=== PATIENT | male | born 1970 | race Caucasian/White ===

== ENCOUNTER 2019-01-01 01:01 | Observation (INO) ==
[2019-01-01] MEDS ORDERED: 0.9 % Sodium Chloride 1,000 ML IV ONE ×2 (01:34→04:04)
[2019-01-01] MEDS ORDERED: Ondansetron 4 MG/2 ML VIAL IVP STA (01:34)
--- NOTE | 2019-01-01 01:35 | Emergency Department Note ---
Disposition Clinical Impression: LOBO (acute kidney injury) Alcohol withdrawal Qualifiers: Complication of substance-induced condition: with unspecified complication Qualified Code(s): F10.239 - Alcohol dependence with withdrawal, unspecified Disposition: Admitted As Inpatient Condition: Fair Referrals: Brian Barber, HYDROTECHNICAL SPECIALIST [Primary Care Provider] - Forms: ED Satisfaction Letter Time of Disposition: 04:02 General Adult HPI - General Chief complaint: ED GI Bleed Stated complaint: vomiting blood, +ETOH Time Seen by Provider: 01/01/19 01:28 Nursing Notes Reviewed: Yes Vital Signs Reviewed: Yes - History of Present Illness HPI Narrative: Alert and oriented nontoxic appearing 48-year-old male presents with complaint of vomiting blood, abdominal pain and alcohol abuse. Patient reports that he has been vomiting blood for several days, although he is unsure exactly how many due to fact that he has been drinking very heavily for a long period of time. Patient reports that he drinks approximately 1 gallon of vodka Daily. Patient is accompanied by his ex- who states that she passed the patient on the roadway 2 days ago and found him next to his car vomiting blood on the side of the road. She states that she helped him in getting home he continued drinking from that point forward. She states that she has been with him throughout the day today as urged him to come to seek medical care. She states the patient has vomited approximately 7-8 times today, she describes it as dry heaving and then coughing up blood-tinged sputum. She reports that patient's abdomen seems more distended than normal. She states that patient has been a chronic alcoholic and that she helps care for him, seeing him a couple of days weekly. Patient reports that he has had abdominal pain to the upper abdomen and epigastric region for "quite some time" and reports that it worsens just before the vomiting, he states that the reason he drinks so much alcohol is to help in relieving the abdominal pain. He also states that he has had several bowel movements daily and states that his stools are black. He reports taking a Vivitrol dose today that he had had left over from a previous rehabilitation visit stating that he was trying to stop drinking today, although he had been drinking up to the point of taking the medication and then again after taking, he states that his nausea and vomiting became much worse after this. He denies fever, chills, diarrhea or shortness of breath. Onset (ago): day(s) Location: abdomen Pain Severity: moderate Quality: burning Consistency: intermittent, Worsening Improves with: nothing Worsens with: eating Associated symptoms: Reports: chest pain (Intermittent after vomiting), cough (Reports cough after vomiting.), nausea/vomiting. Denies: confusion, diaphoresis, fever/chills, headaches, loss of appetite, malaise, rash, seizure, shortness of breath, syncope, weakness Treatments Prior to Arrival: none - Related Data Allergies Allergy/AdvReac Type Severity Reaction Status Date / Time Penicillins Allergy Rash Verified 09/04/16 07:47 Review of Systems: As Per HPI Constitutional: Reports: as per HPI. Denies: fever, chills, weakness Cardiovascular: Reports: as per HPI, chest pain. Denies: palpitations, dyspnea on exertion Respiratory: Reports: as per HPI, cough, hemoptysis. Denies: dyspnea, wheezes, stridor Gastrointestinal: Reports: as per HPI, abdominal pain, nausea, vomiting, hemate mesis. Denies: diarrhea, hematochezia Genitourinary: Denies: dysuria Musculoskeletal: Denies: back pain, neck pain Integumentary: Denies: rash, abrasion, lesions, change in hair/nails Neurological: Denies: headache, weakness, numbness, paresthesias Past Medical History - Past Medical History Attestation: Yes The following information was validated with the patient. Source: patient, nursing notes reviewed Medical history: Reports: diabetes, GERD, hypertension, other Surgical history: Reports: other Psychiatric history: Reports: no psych history - Social History Smoking Status: Current every day smoker Alcohol use: Reports: heavy Drug use: Reports: none Physical Exam - General Limitations: no limitations General appearance: in no apparent distress, appears intoxicated - Head Head exam: atraumatic, normocephalic - Eye Eye exam: Present: normal appearance, EOMI. Absent: scleral icterus, conjunctival injection, periorbital swelling - ENT ENT exam: normal exam, mucous membranes dry - Neck Neck exam: Present: normal inspection, trachea midline. Absent: meningismus, lymphadenopathy - Chest Chest inspection: Present: normal inspection, symmetric chest wall rise - Respiratory Respiratory exam: Present: normal lung sounds bilaterally. Absent: respiratory distress, wheezes, stridor, accessory muscle use, prolonged expiratory phase - Cardiovascular Cardiovascular exam: Present: normal heart sounds - Abdominal Exam Abdominal exam: Present: tenderness, distention (Mild), diminished bowel sounds, hypoactive bowel sounds. Absent: guarding, rebound, rigidity, organomegaly, tenderness at McBurney's Point, ascites, mass Abdominal tenderness: Present: RUQ, LUQ, epigastrium - Extremities Exam Extremities exam: Present: normal inspection, full ROM. Absent: tenderness - Back Exam Back exam: Absent: tenderness - Neurological Exam Neurological exam: Present: alert, oriented X3 - Psychiatric Psychiatric exam: Present: normal affect, normal mood - Skin Skin exam: Present: warm, dry, intact, normal color Course Vital Signs Temperature 98.4 F 01/01/19 01:44 Pulse Rate 90 01/01/19 01:44 Respiratory Rate 18 01/01/19 01:44 Blood Pressure 125/73 01/01/19 01:44 O2 Sat by Pulse Oximetry 95 01/01/19 01:44 Temperature 98.4 F 01/01/19 01:44 Pulse Rate 53 01/01/19 02:38 Respiratory Rate 16 01/01/19 02:38 Blood Pressure 106/63 01/01/19 02:38 O2 Sat by Pulse Oximetry 92 01/01/19 02:38 Oxygen Delivery Oxygen Delivery Room Air Medical Decision Making - MDM Narrative Medical decision making narrative: I spoke to the hospitalist at this time and he does accept patient under hospitalist care for acute kidney injury as well as alcohol withdrawal. - Medical Records Medical records reviewed: Yes I reviewed the patient's medical records. - Lab Data Lab results reviewed: Yes I reviewed the patient's lab results. Result diagrams: 01/01/19 01:51 01/01/19 01:51 Lab Results 01/01/19 01/01/19 01/01/19 Range/Units 01:51 01:51 01:51 WBC 9.8 (4.3-11.1) K/mcL RBC 4.34 (4.19-5.50) M/mcL Hgb 13.1 (12.9-16.9) g/dL Hct 38.9 (37.5-50.1) % MCV 89.6 (83.0-100.0) fL MCH 30.2 (28.0-33.3) pg MCHC 33.7 (31.6-35.5) g/dL RDW 14.6 H (11.5-14.5) % Plt Count 240 (140-400) K/mcL MPV 9.3 L (9.4-12.4) fL Immature Gran % 0.5 (0-4) % Seg Neutrophils % 67.2 % Lymphocytes % 25.4 % Monocytes % 6.0 % Eosinophils % 0.5 % Basophils % 0.4 % Neutrophils # 6.6 (1.6-8.9) K/mcL Lymphocytes # 2.5 (0.6-4.6) K/mcL Monocytes # 0.6 (0.0-1.3) K/mcL Eosinophils # 0.1 (0.0-0.6) K/mcL Basophils # 0.0 (0.0-0.2) K/mcL PT 11.7 (9.4-12.1) Seconds INR 1.0 APTT 29.3 (26.0-36.0) Seconds Sodium 134 L (136-145) mEq/L Potassium 3.6 (3.5-5.1) mEq/L Chloride 99 (98-107) mEq/L Carbon Dioxide 18 L (23-29) mEq/L BUN 24 H (6-20) mg/dL Creatinine 2.12 H (0.70-1.30) mg/dL Est GFR ( Amer) 41 L (> 60) Est GFR (Non-Af Amer) 34 L (> 60) BUN/Creatinine Ratio 11 (6-26) Glucose 101 (70-105) mg/dL Calculated Osmolality 282 (280-300) Calcium 8.4 L (8.6-10.3) mg/dL Total Bilirubin 0.4 (0.3-1.0) mg/dL Direct Bilirubin 0.1 (0.0-0.2) mg/dL Indirect Bilirubin 0.3 (0.0-1.2) mg/dL AST 17 (13-39) Units/L ALT 15 (7-52) Units/L Alkaline Phosphatase 46 (34-104) Units/L Serum Total Protein 6.5 (6.4-8.9) g/dL Albumin 4.2 (3.5-5.7) g/dL Globulin 2.3 L (2.4-3.5) g/dL Albumin/Globulin Ratio 1.8 (1.1-2.2) Ethyl Alcohol 274 H (Less than 10) mg/dL - Radiology Data Radiology results reviewed: Yes I reviewed the patient's radiology results. - EKG Data EKG #1 EKG attestation: Yes I reviewed and interpreted this EKG. EKG results narrative: I reviewed the EKG which shows a sinus bradycardia with no sign of ST elevation or depression. Heart rate: 53, TX:184, QRSD: 96, QT/QTc: 421/461.
[2019-01-01 02:09] LABS: Basophils % 0.4 %; Eosinophils # 0.1 K/mcL (0.0-0.6); Eosinophils % 0.5 %; Hematocrit 38.9 % (37.5-50.1); Hemoglobin 13.1 g/dL (12.9-16.9); Immature Granulocytes % 0.5 % (0-4); Lymphocytes # 2.5 K/mcL (0.6-4.6); Lymphocytes % 25.4 %; Mean Corpuscular HGB Conc 33.7 g/dL (31.6-35.5); Mean Corpuscular Hemoglobin 30.2 pg (28.0-33.3); Mean Corpuscular Volume 89.6 fL (83.0-100.0); Mean Platelet Volume 9.3 fL (9.4-12.4); Monocytes # 0.6 K/mcL (0.0-1.3); Neutrophils # 6.6 K/mcL (1.6-8.9); Platelet Count 240 K/mcL (140-400); Red Blood Count 4.34 M/mcL (4.19-5.50); Red Cell Distribution Width 14.6 % (11.5-14.5); Segmented Neutrophils % 67.2 %; White Blood Count 9.8 K/mcL (4.3-11.1)
[2019-01-01 02:17] LABS: Prothrombin Time 11.7 Seconds (9.4-12.1)
[2019-01-01 02:19] LABS: Activated Partial Thrombo Time 29.3 Seconds (26.0-36.0)
[2019-01-01 02:31] LABS: Albumin 4.2 g/dL (3.5-5.7); Albumin/Globulin Ratio 1.8 (1.1-2.2); Bilirubin,Direct 0.1 mg/dL (0.0-0.2); Bilirubin,Indirect 0.3 mg/dL (0.0-1.2); Bilirubin,Total 0.4 mg/dL (0.3-1.0); Calcium 8.4 mg/dL (8.6-10.3); Globulin 2.3 g/dL (2.4-3.5); Potassium 3.6 mEq/L (3.5-5.1); Total Protein 6.5 g/dL (6.4-8.9)
[2019-01-01] MEDS ORDERED: *HR* LORazepam 2 MG/ML VIAL IVP STA (03:57)
[2019-01-01] MEDS ORDERED: Thiamine (B-1) 100 MG in 0.9 % Sodium Chloride 50 ML IVPB STA (04:03)
[2019-01-01] MEDS ORDERED: *HR* LORazepam 2 MG/ML VIAL IVP ONE (04:53)
[2019-01-01] MEDS ORDERED: Naloxone 0.4 MG/ML INJ IVP PRN (08:08)
[2019-01-01] MEDS ORDERED: Acetaminophen 325 MG TABLET PO PRN (08:08)
[2019-01-01] MEDS ORDERED: *HR* Dextrose 50 % in Water (Syg) 50 ML SYRINGE IVP PRN (08:13)
[2019-01-01] MEDS ORDERED: *HR* LORazepam 2 MG/ML VIAL IVP PRN (08:13)
[2019-01-01] MEDS ORDERED: Dextrose Gel 15 GM/37.5 ML TUBE PO PRN ×2 (08:13)
[2019-01-01] MEDS ORDERED: D5% in Water 1,000 ML IVC PRN (08:13)
[2019-01-01] MEDS ORDERED: Nicotine 21 MG PATCH.TD24 TD SCH (09:00)
[2019-01-01] MEDS: Folic Acid 1 MG TABLET PO SCH (09:01)
[2019-01-01] MEDS: *HR* LORazepam 2 MG/ML VIAL IVP PRN ×6 (09:01→22:07)
--- NOTE | 2019-01-01 09:22 | AcuteCare Surgery Consult Note ---
Date of Encounter: 01/01/19 Time of Encounter: 09:15 Assessment and Plan (1) Hematemesis Current Visit: Yes Status: Acute The patient reports several episodes of hematemesis associated with heavy alcohol use. We will plan upper endoscopy tomorrow morning Mac anesthesia Qualifiers: Nausea presence: with nausea Qualified Code(s): K92.0 - Hematemesis History of Present Illness Consult date: 01/01/19 Reason for consult: other (Hematemesis) History of present illness: The patient is a 48-year-old alcoholic. The patient has had hematemesis on at least 2 separate occasions. The most recent was 5 years ago. He had upper endoscopy that demonstrated gastritis at that time the patient states that he h as hematemesis when he drinks heavily. The patient states that he has been drinking a gallon and a half of liquor per day he had several episodes of hematemesis and now presents for further evaluation. The patient ate earlier today. He is currently stable. We will plan nothing by mouth after midnight and upper endoscopy tomorrow morning Past Med Surg Social Fam HX - Past Medical History Medical history: diabetes, GERD, hypertension, other Additional medical history: lumbar disc herniation Psychiatric history: no psych history - Past Surgical History Surgical History: other Additional surgical history: right hand, back - Social History Smoking Status: Current every day smoker Packs per day: 2 Smokeless Tobacco Status: Yes Alcohol use: heavy, recent Drug use: none - Family History Mother Living Status: Still Living Hx Family Cardiac Disorders: Yes Father Living Status: Still Living Hx Family Cardiac Disorders: Yes Medications and Allergies Aspirin [Lo-Dose Aspirin EC] 81 mg PO 01/01/19 [History] Benazepril HCl [Lotensin] 10 mg PO 01/01/19 [History] Gabapentin [Gralise] 1 each PO 01/01/19 [History] GlipiZIDE [Glucotrol] 01/01/19 [History] Metoprolol [Lopressor] 25 mg PO 01/01/19 [History] Pantoprazole Sodium [Protonix] 20 mg PO DAILY 01/01/19 [History] Pravastatin Sodium [Pravachol] 20 mg PO 01/01/19 [History] Tizanidine HCl [Zanaflex] 2 mg PO TID 01/01/19 [History] amLODIPine [Norvasc] 5 mg PO 01/01/19 [History] metFORMIN [Glucophage] 500 mg PO 01/01/19 [History] Allergy/AdvReac Type Severity Reaction Status Date / Time Penicillins Allergy Rash Verified 09/04/16 07:47 Review of Systems All systems PM: The remainder of the systems were reviewed and are negative General Surgery Exam Initial Vital Signs Temp Pulse Resp BP Pulse Ox 98.4 F 90 18 125/73 95 01/01/19 01:44 01/01/19 01:44 01/01/19 01:44 01/01/19 01:44 01/01/19 01:44 - General physical appearance well developed, chronically ill, obese - Respiratory crackles: bilateral, wheezing: bilateral - Cardiovascular Cardiovascular exam: Present: RRR, tachycardia - Abdomen Abdomen general surgery: Present: bowel sounds present, soft, non tender (Spherical abdominal obesity) - Integumentary Integumentary general surgery: Present: warm and dry, no abnormal pigmentation, other (No evidence of jaundice) - Neurologic Present: CN 2-12 grossly intact, normal coordination, normal sensation - Psychiatric Psychiatric general surgery: Present: appropriate, oriented to person, oriented to place, oriented to time, speech is normal, memory intact Exam Initial Vital Signs Temp Pulse Resp BP Pulse Ox 98.4 F 90 18 125/73 95 01/01/19 01:44 01/01/19 01:44 01/01/19 01:44 01/01/19 01:44 01/01/19 01:44 Results - Labs 01/01/19 01:51 01/01/19 01:51 Abnormal lab results RDW 14.6 % (11.5-14.5) H 01/01/19 01:51 MPV 9.3 fL (9.4-12.4) L 01/01/19 01:51 Sodium 134 mEq/L (136-145) L 01/01/19 01:51 Carbon Dioxide 18 mEq/L (23-29) L 01/01/19 01:51 BUN 24 mg/dL (6-20) H 01/01/19 01:51 Creatinine 2.12 mg/dL (0.70-1.30) H 01/01/19 01:51 Est GFR ( Amer) 41 (> 60) L 01/01/19 01:51 Est GFR (Non-Af Amer) 34 (> 60) L 01/01/19 01:51 Calcium 8.4 mg/dL (8.6-10.3) L 01/01/19 01:51 Globulin 2.3 g/dL (2.4-3.5) L 01/01/19 01:51 Ethyl Alcohol 266 mg/dL (Less than 10) H 01/01/19 03:29 Diabetes panel 01/01/19 Range/Units 01:51 Sodium 134 L (136-145) mEq/L Potassium 3.6 (3.5-5.1) mEq/L Chloride 99 (98-107) mEq/L Carbon Dioxide 18 L (23-29) mEq/L BUN 24 H (6-20) mg/dL Creatinine 2.12 H (0.70-1.30) mg/dL Glucose 101 (70-105) mg/dL Calcium 8.4 L (8.6-10.3) mg/dL AST 17 (13-39) Units/L ALT 15 (7-52) Units/L Alkaline Phosphatase 46 (34-104) Units/L Albumin 4.2 (3.5-5.7) g/dL Calcium panel 01/01/19 Range/Units 01:51 Calcium 8.4 L (8.6-10.3) mg/dL Albumin 4.2 (3.5-5.7) g/dL Pituitary panel 01/01/19 Range/Units 01:51 Sodium 134 L (136-145) mEq/L Potassium 3.6 (3.5-5.1) mEq/L Chloride 99 (98-107) mEq/L Carbon Dioxide 18 L (23-29) mEq/L BUN 24 H (6-20) mg/dL Creatinine 2.12 H (0.70-1.30) mg/dL Glucose 101 (70-105) mg/dL Calcium 8.4 L (8.6-10.3) mg/dL Adrenal panel 01/01/19 Range/Units 01:51 Sodium 134 L (136-145) mEq/L Potassium 3.6 (3.5-5.1) mEq/L Chloride 99 (98-107) mEq/L Carbon Dioxide 18 L (23-29) mEq/L BUN 24 H (6-20) mg/dL Creatinine 2.12 H (0.70-1.30) mg/dL Glucose 101 (70-105) mg/dL Calcium 8.4 L (8.6-10.3) mg/dL Total Bilirubin 0.4 (0.3-1.0) mg/dL AST 17 (13-39) Units/L ALT 15 (7-52) Units/L Alkaline Phosphatase 46 (34-104) Units/L Albumin 4.2 (3.5-5.7) g/dL All other labs normal. Consult Discharge Plan - Plan Referrals: Brian Barber, COAL CRUSHER OPERATOR [Primary Care Provider] -
[2019-01-01] MEDS: Ondansetron 4 MG/2 ML VIAL IVP PRN ×2 (10:01→17:02)
[2019-01-01] MEDS: Insulin LISPRO 300 UNITS/3 ML VIAL SQ SCH ×2 (11:57→17:02)
[2019-01-01] MEDS ORDERED: amLODIPine 5 MG TABLET PO SCH (13:00)
[2019-01-01] MEDS ORDERED: Lisinopril 20 MG TABLET PO SCH (13:00)
--- NOTE | 2019-01-01 13:52 | Internal Med History&Physical ---
Date of Encounter: 01/01/19 Time of Encounter: 07:30 Internal Medicine - H&P: HPI Chief complaint: Hematemesis Admitted From: Emergency Dept Plans for Post Hospital Care: Home History of present illness: Mr. Haines is a 48 year old male with a past medical history significant for diabetes mellitus, hypertension, alcohol abuse, presented to the hospital after multiple episodes of hematemesis. is at bedside and history is obtained both from the patient and the patient's . Patient had a history of alcohol abuse and he was not drinking any alcohol for past 4 months but he had a relapse 5 days back and he started drinking hard liquor, blood, almost daily. He started having hematemesis 2 days back. He had 4-5 episodes in total, last episode 1 AM last night before presenting to the hospital. Patient denies any previous history of hematemesis. Patient denies any previous history of esophageal varices, liver cirrhosis. He was told in the past that he has had infiltration of the liver and he should avoid alcohol. Denies any previous history of hepatitis C. Denies any previous history of IV drug abuse. Has history of severe alcohol withdrawals in the past. No previous history of gastric ulcers or Helicobacter pylori infection. Currently he is feeling fine. Denies any nausea, vomiting, diarrhea. He had big breakfast in the morning around 7 AM, tolerated it well. He was not ordered the food by the emergency department, brought his own food. Denies blood in the stools or black tarry stools. Patient was hemodynamically stable in the emergency department. Chest x-ray was negative for any pathology. UA was negative for any infection. Did not have any hematemesis episode while in the hospital. Lab workup was significant for acute kidney injury with creatinine of 2.12. He was admitted for further management. Past Med Surg Social Fam HX - Past Medical History Medical history: diabetes, GERD, hypertension, other Additional medical history: lumbar disc herniation Psychiatric history: no psych history - Past Surgical History Surgical History: other Additional surgical history: right hand, back - Social History Smoking Status: Current every day smoker Packs per day: 2 Smokeless Tobacco Status: Yes Alcohol use: heavy, recent Drug use: none - Family History Mother Living Status: Still Living Hx Family Cardiac Disorders: Yes Father Living Status: Still Living Hx Family Cardiac Disorders: Yes Internal Medicine - H&P: Meds Aspirin [Lo-Dose Aspirin EC] 81 mg PO 01/01/19 [History] Benazepril HCl [Lotensin] 10 mg PO 01/01/19 [History] Gabapentin [Gralise] 1 each PO 01/01/19 [History] GlipiZIDE [Glucotrol] 01/01/19 [History] Metoprolol [Lopressor] 25 mg PO 01/01/19 [History] Pantoprazole Sodium [Protonix] 20 mg PO DAILY 01/01/19 [History] Pravastatin Sodium [Pravachol] 20 mg PO 01/01/19 [History] Tizanidine HCl [Zanaflex] 2 mg PO TID 01/01/19 [History] amLODIPine [Norvasc] 5 mg PO 01/01/19 [History] metFORMIN [Glucophage] 500 mg PO 01/01/19 [History] Allergy/AdvReac Type Severity Reaction Status Date / Time Penicillins Allergy Rash Verified 09/04/16 07:47 All Systems PM: A 10-system review of systems was performed and is negative for pertinent findings except as documented above in the HPI. Review of systems: General: Negative for fever, chills, rigors. HEENT: Negative for neck swelling, discharge from nose, discharge from ears. EYES: Negative for any discharge from the eyes. Respiratory: Negative for shortness of breath, orthopnea, exertional dyspnea. Cardiovascular: Negative for chest pain, shortness of breath, orthopnea, PND. Gastrintestical: See HPI Genitourinary: Negative for dysuria, hematuria, nocturia, increased frequency of urine. Hematological: Negative for blood loss, negative for active cancer. Neurological: Negative for headache, dizziness, blurry vision, loss os power and sensations. Endocrinology: Negative for constipation, polyuria, polydipsia. Integumentary: Negative for rash, wounds, ulcers. Psychiatric: Negative for anxiety or depression. - Constitutional Vitals: Temp Pulse Resp BP Pulse Ox 99.5 F 89 15 163/82 98 01/01/19 10:55 01/01/19 10:55 01/01/19 10:55 01/01/19 10:55 01/01/19 10:55 Exam: General: Alert and oriented, no physical distress, able to follow commands. HEENT: No thyromegaly, no lymphadenopathy, no discharge. Eyes: No discharge. Normal conjuctiva, no icterus Respiratory: Normal vesicular breathing, no added sounds, breathing equal in both sides. CVS: Normal heart sounds, no murmurs, regular rhthm, no edema Extremities: No peripheral edema, peripheral pulses intact. Lymph nodes: No lymphadenopathy Gastrointestinal: Soft, nontender abdomen, normal abdominal sounds. No distention noted. Genitourinary: No paravertebral tenderness. Skin: No rash, ulcers or wound. Neurological: Alert and oriented. No focal deficits. Cranial nerves II-XII intact. Internal Med - H&P Results - Labs CBC & Chem 7: 01/01/19 01:51 01/01/19 01:51 Labs: Short CBC 01/01/19 Range/Units 01:51 WBC 9.8 (4.3-11.1) K/mcL Hgb 13.1 (12.9-16.9) g/dL Hct 38.9 (37.5-50.1) % Plt Count 240 (140-400) K/mcL Neutrophils # 6.6 (1.6-8.9) K/mcL BMP 01/01/19 01:51 Sodium 134 L Potassium 3.6 Chloride 99 Carbon Dioxide 18 L BUN 24 H Creatinine 2.12 H Glucose 101 Calcium 8.4 L Liver Function 01/01/19 Range/Units 01:51 Total Bilirubin 0.4 (0.3-1.0) mg/dL Direct Bilirubin 0.1 (0.0-0.2) mg/dL AST 17 (13-39) Units/L ALT 15 (7-52) Units/L Alkaline Phosphatase 46 (34-104) Units/L Albumin 4.2 (3.5-5.7) g/dL - Impressions ITS Impressions Chest X-Ray 01/01/19 02:14 IMPRESSION: No acute cardiopulmonary abnormality. D/ / Lucius Pearson MD / Lucius Pearson MD Interpreting Provider: Lucius Pearson MD - Assessment and Plan (1) Alcohol abuse Current Visit: Yes Status: Acute (2) Diabetes mellitus Current Visit: Yes Status: Acute Qualifiers: Diabetes mellitus type: type 2 Diabetes mellitus computer terminal operator insulin use: without care home use Diabetes mellitus complication status: without complication Qualified Code(s): E11.9 - Type 2 diabetes mellitus without complications (3) Hypertension Current Visit: Yes Status: Acute Qualifiers: Hypertension type: essential hypertension Qualified Code(s): I10 - Essential (primary) hypertension (4) LOBO (acute kidney injury) Current Visit: Yes Status: Acute (5) Alcohol withdrawal Current Visit: Yes Status: Acute Qualifiers: Complication of substance-induced condition: with unspecified complication Qualified Code(s): F10.239 - Alcohol dependence with withdrawal, unspecified (6) Hematemesis Current Visit: Yes Status: Acute Qualifiers: Nausea presence: with nausea Qualified Code(s): K92.0 - Hematemesis - Summary of Assessment and Plan Summary of Assessment and Plan: Hematemesis Nausea and vomiting Alcohol abuse Etiology unclear. Differential includes esophageal varices considering alcohol abuse or gastric ulceration or Polly Muñoz tear Currently, patient is symptomatic. Did not have any sharlene bleeding. Denies bleeding per rectum. Unfortunately, patient ate a big breakfast in the morning. He tolerated it well. Hemoglobin is stable. Plan: Diabetic diet. Zofran for the nausea. discussed with surgical team, patient will be nothing by mouth after midnight and he will get endoscopy tomorrow. Repeat CBC tomorrow. Continue Protonix. Alcohol abuse Alcohol withdrawal History of withdrawls COntinue CIWA protocol with PRN ativan Folic acid, thiamine ordered, outreach and education social worker consult for the rehab referral Obtain ultrasound of the liver to evaluate for any cirrhosis. DM type 2: Hold home antidiabetic medications. Continue low-dose sliding scale. Essential hypertension: Continue amlodipine. Acute kidney injury: Creatinine of 2.12, baseline seems to be around 1. Last creatinine was in 2014 in our records Likely prerenal In the context of mitomycin and vomiting Continue the patient on IV fluids. Continue to monitor the kidney function and BMP. Heparin for DVT prophylaxis Patient is full code - Time Spent With Patient Total time spent is greater than 50% in coordination of care (as documented) at patient's floor/unit and/or counseling patient:
[2019-01-01] MEDS: Pantoprazole 40 MG VIAL IVP SCH (17:02)
[2019-01-01] MEDS: *HR* Heparin 5,000 UNIT/ML VIAL SQ SCH (18:24)
[2019-01-02] MEDS: *HR* LORazepam 2 MG/ML VIAL IVP PRN ×2 (00:18→04:09)
[2019-01-02 06:38] LABS: Basophils % 0.6 %; Eosinophils # 0.2 K/mcL (0.0-0.6); Eosinophils % 4.3 %; Hemoglobin 14.4 g/dL (12.9-16.9); Immature Granulocytes % 0.4 % (0-4); Lymphocytes # 1.8 K/mcL (0.6-4.6); Lymphocytes % 35.6 %; Mean Corpuscular HGB Conc 33.5 g/dL (31.6-35.5); Mean Corpuscular Hemoglobin 29.9 pg (28.0-33.3); Mean Corpuscular Volume 89.4 fL (83.0-100.0); Mean Platelet Volume 9.6 fL (9.4-12.4); Monocytes # 0.5 K/mcL (0.0-1.3); Monocytes % 10.1 %; Neutrophils # 2.5 K/mcL (1.6-8.9); Platelet Count 227 K/mcL (140-400); Red Blood Count 4.81 M/mcL (4.19-5.50); Red Cell Distribution Width 14.4 % (11.5-14.5); White Blood Count 5.2 K/mcL (4.3-11.1)
[2019-01-02] MEDS: Pantoprazole 40 MG VIAL IVP SCH (06:38)
[2019-01-02] MEDS: *HR* Heparin 5,000 UNIT/ML VIAL SQ SCH (06:38)
[2019-01-02 06:59] LABS: BUN/Creatinine Ratio 22 (6-26); Blood Urea Nitrogen 19 mg/dL (6-20); Calcium 9.2 mg/dL (8.6-10.3); Carbon Dioxide 28 mEq/L (23-29); Chloride 100 mEq/L (98-107); Glucose 155 mg/dL (70-105); Magnesium 1.9 mg/dL (1.6-2.6); Osmolality,Calculated 285 (280-300); Potassium 4.1 mEq/L (3.5-5.1); Sodium 135 mEq/L (136-145); eGFR For African Americans > 60 (> 60); eGFR For Non-African Americans > 60 (> 60)
--- NOTE | 2019-01-02 07:07 | Anesthesia Evaluation PreOp ---
Date of Encounter: 01/02/19 Time of Encounter: 07:05 - Past History Planned Operation: EGD Cardiac History: HTN Pulmonary History: Smoker, Pack/yr (2 ppd) AD CLERK History: Denies Any Significant HX Other Medical History: GERD, Other (hematemesis) Anesthesia History: No Prior Anesthetic Complications, Past Anesthesia (right hand, Back) Alcohol Use: heavy ( gallon and a half of liquor per day), recent Drug use: none Medications and Allergies Amlodipine Besylate 5 mg PO DAILY 01/01/19 [History] Aspirin [Lo-Dose Aspirin EC] 81 mg PO DAILY 01/01/19 [History] Benazepril HCl 40 mg PO DAILY 01/01/19 [History] Fluticasone Propionate Nasal [Flonase] 2 spr NS DAILY PRN 01/01/19 [History] Folic Acid 1 mg PO DAILY 01/01/19 [History] Gabapentin 600 mg PO BID 01/01/19 [History] Metformin HCl [Metformin ER Gastric] 1,000 mg PO DAILY 01/01/19 [History] Metoprolol [Lopressor] 12.5 mg PO BID 01/01/19 [History] Pantoprazole Sodium 40 mg PO DAILY 01/01/19 [History] Pioglitazone HCl [Actos] 15 mg PO DAILY 01/01/19 [History] Pravastatin Sodium [Pravachol] 20 mg PO HS 01/01/19 [History] Tizanidine HCl [Zanaflex] 4 mg PO BID PRN MDD . 01/01/19 [History] glipiZIDE [Glipizide] 10 mg PO DAILY 01/01/19 [History] Allergy/AdvReac Type Severity Reaction Status Date / Time Penicillins Allergy Rash Verified 09/04/16 07:47 - Meds/Allergy Pre-op Review Medications Reviewed: Yes Allergies Reviewed: Yes Beta Blockers on Current Med List: No Anesthesia Results - Labs 01/02/19 05:46 01/02/19 05:46 Anesthesia Exam Vital Signs/O2 Sat, Most Current Temp Pulse Resp BP Pulse Ox 98.6 F 68 14 162/92 97 01/02/19 06:51 01/02/19 06:51 01/02/19 06:51 01/02/19 06:51 01/02/19 06:51 - HEENT Pupil (Motor): Pupils equal, EOMI Mallampati: III Teeth: Normal Oral Opening: Greater than 3 - AD CLERK LOC: Oriented AD CLERK Motor: Normal RUE, Normal LUE, Normal RLE, Normal LLE, Normal Face AD CLERK Sensory: Normal: RUE, LUE, RLE, LLE, Face - Cardiac Rhythm: Regular Murmur: None JVD: No Carotid Bruit: No - Pulmonary Breath Sounds: bilateral Clear Respiratory Effort: Symmetrical Anesthesia Assess/Plan ASA Score: 3 Level of consciousness: Cooperative Anesthetic Plan: General Autologous Blood: Yes Monitoring Plan: Standard Monitors Recovery Plan: PACU
[2019-01-02] MEDS ORDERED: *HR* Propofol 200 MG/20 ML VIAL IVP ONE ×2 (07:51→08:37)
[2019-01-02] MEDS ORDERED: *HR* FentaNYL (PF) 100 MCG/2 ML VIAL ONE (07:51)
[2019-01-02] MEDS ORDERED: Dexamethasone 4 MG/ML VIAL ONE (07:54)
[2019-01-02] MEDS ORDERED: *HR* Succinylcholine 200 MG/10 ML VIAL IVP ONE (07:54)
[2019-01-02] MEDS ORDERED: Lidocaine -MPF 2% 2 ML VIAL ONE (07:54)
[2019-01-02] MEDS ORDERED: Ondansetron 4 MG/2 ML VIAL ONE (07:54)
[2019-01-02] MEDS ORDERED: *HR* Midazolam HCl 5 MG/5 ML VIAL IVP ONE (07:56)
[2019-01-02] MEDS ORDERED: *HR* HYDROmorphone (PF) 1 MG/ML SYRINGE IVP PRN (08:26)
[2019-01-02] MEDS ORDERED: Tetracaine/Benzocaine/Butamben 1 SPRAY AEROSOL MM ONE (08:26)
[2019-01-02] MEDS ORDERED: Ondansetron 4 MG/2 ML VIAL IVP ONE (08:26)
[2019-01-02] MEDS ORDERED: *HR* Promethazine 25 MG/ML VIAL IVP PRN (08:26)
[2019-01-02] MEDS ORDERED: Simethicone 40 MG/0.6 ML MLS IR ONE (08:26)
[2019-01-02] MEDS ORDERED: *HR* OxyCODONE Immed Rel 5 MG TABLET PO PRN (08:26)
[2019-01-02] MEDS ORDERED: 0.9 % Sodium Chloride 1,000 ML IVC SCH (08:30)
[2019-01-02] MEDS ORDERED: *HR* Labetalol 20 MG/4 ML SYRINGE IVP ONE (08:39)
[2019-01-02] MEDS ORDERED: Thiamine (B-1) 100 MG TABLET PO SCH (09:00)
[2019-01-02 09:35] VITALS: BP 164/91
--- NOTE | 2019-01-02 09:37 | Anesthesia Evaluation Post Op ---
Date of Encounter: 01/02/19 Time of Encounter: 09:36 - Vital Signs Vital Signs: Vital Signs/O2 Sat, Most Current Temp Pulse Resp BP Pulse Ox 98.0 F 74 16 164/91 95 01/02/19 09:34 01/02/19 09:34 01/02/19 09:34 01/02/19 09:34 01/02/19 09:34 - Lungs Lungs: Clear Ascult./Percussion - Airway Airway: Non-obstructed - Cardiovascular Regular Rate - Mental Status Mental Status: Alert & Oriented, Answers Appropriately - Pain Pain Scale: 0 Pain Scale used: Numeric (1 - 10) - Nausea Vomiting Nausea Vomiting: Not Present - Hydration Hydration: Ice chips, Has not voided - Discharge PostOp Status: Transfer Patient to floor
[2019-01-02] MEDS: Insulin LISPRO 300 UNITS/3 ML VIAL SQ SCH (09:49)
--- NOTE | 2019-01-02 10:52 | Discharge Summary ---
Orders not resulted at time of discharge: Pending orders 01/02/19 08:41 H. pylori Urease Cult. CLOtest [RM] Stat 01/02/19 08:49 Surgical Pathology [PTH] Routine Date of Encounter: 01/02/19 Time of Encounter: 10:34 - Discharge Diagnosis (1) Alcohol abuse Priority: Primary Status: Acute (2) Diabetes mellitus Priority: Secondary Status: Acute Qualifiers: Diabetes mellitus type: type 2 Diabetes mellitus joint terminal attack controller insulin use: without joint terminal attack controller use Diabetes mellitus complication status: without complication Qualified Code(s): E11.9 - Type 2 diabetes mellitus without complications (3) Hypertension Priority: Secondary Status: Acute Qualifiers: Hypertension type: essential hypertension Qualified Code(s): I10 - Essential (primary) hypertension (4) LOBO (acute kidney injury) Priority: Secondary Status: Acute (5) Alcohol withdrawal Priority: Secondary Status: Acute Qualifiers: Complication of substance-induced condition: with unspecified complication Qualified Code(s): F10.239 - Alcohol dependence with withdrawal, unspecified (6) Hematemesis Priority: Secondary Status: Acute Qualifiers: Nausea presence: with nausea Qualified Code(s): K92.0 - Hematemesis Hospital course: Mr. Haines is a 48 year old male who initially presented with the hematemesis, found to be in alcohol withdrawl. Started on CIWA protocol and kept NPO for the ecndoscopy today. Got the endoscopy which did not show any stigmata of bleed. After the endoscopy, pt left AMA. Notified by the nurse to come and see the pt, before he leiaves but the pt left AMA even before been seen and was not able to appliance counselor him to leave againt medical advic.e - Time Spent with Patient Total time spent providing and/or coordinating discharge services: - Discharge Medications Prescriptions: No Action Amlodipine Besylate 5 mg PO DAILY Aspirin [Lo-Dose Aspirin EC] 81 mg PO DAILY Benazepril HCl 40 mg PO DAILY Fluticasone Propionate Nasal [Flonase] 2 spr NS DAILY PRN PRN Reason: Allergy Symptoms Folic Acid 1 mg PO DAILY Gabapentin 600 mg PO BID glipiZIDE [Glipizide] 10 mg PO DAILY Metformin HCl [Metformin ER Gastric] 1,000 mg PO DAILY Metoprolol [Lopressor] 12.5 mg PO BID Pantoprazole Sodium 40 mg PO DAILY Pioglitazone HCl [Actos] 15 mg PO DAILY Pravastatin Sodium [Pravachol] 20 mg PO HS Tizanidine HCl [Zanaflex] 4 mg PO BID PRN MDD . PRN Reason: Muscle Spasm Home Medications: Amlodipine Besylate 5 mg PO DAILY 01/01/19 [History] Aspirin [Lo-Dose Aspirin EC] 81 mg PO DAILY 01/01/19 [History] Benazepril HCl 40 mg PO DAILY 01/01/19 [History] Fluticasone Propionate Nasal [Flonase] 2 spr NS DAILY PRN 01/01/19 [History] Folic Acid 1 mg PO DAILY 01/01/19 [History] Gabapentin 600 mg PO BID 01/01/19 [History] Metformin HCl [Metformin ER Gastric] 1,000 mg PO DAILY 01/01/19 [History] Metoprolol [Lopressor] 12.5 mg PO BID 01/01/19 [History] Pantoprazole Sodium 40 mg PO DAILY 01/01/19 [History] Pioglitazone HCl [Actos] 15 mg PO DAILY 01/01/19 [History] Pravastatin Sodium [Pravachol] 20 mg PO HS 01/01/19 [History] Tizanidine HCl [Zanaflex] 4 mg PO BID PRN MDD . 01/01/19 [History] glipiZIDE [Glipizide] 10 mg PO DAILY 01/01/19 [History] Allergies/Adverse Reactions: Allergy/AdvReac Type Severity Reaction Status Date / Time Penicillins Allergy Rash Verified 09/04/16 07:47 Date of admission: 01/01/19 05:57 Primary care physician: Brian Barber CNP Consults: 01/01/19 03:57 Consult to [employer] Reports Developer [CONS] Routine Reason for SW Consult: Alcohol Withdraw 01/01/19 08:14 Consult to Surgery [CONS] Routine Consulting Provider: Acute Care Surgery Reason for Consult: Hematemesis Call Completed: Yes - Constitutional Vitals: Temp Pulse Resp BP Pulse Ox 98.0 F 74 16 164/91 95 01/02/19 09:34 01/02/19 09:34 01/02/19 09:34 01/02/19 09:34 01/02/19 09:34 Exam: Pt left AMA, was kiannaot seen - Patient Status Disposition: Left Against Medical Advice Condition: Fair - Discharge Instructions Follow Up With: Charlotte,Ali N, LEAD [employer] AGENT [Primary Care Provider] -
--- NOTE | 2019-01-04 06:28 | Electrocardiograph Report ---
[facility] Test Date: 2019-01-01 Pat Name: Jefferson Haines Department: [id number] Room: 3A56 Gender: M Business Solutions Analyst: : 1970 Requested By: [id number] Order Number: [id number] Reading MD: Delgado Topete Measurements Intervals [place] Rate: 53 P: 73 SD: 184 QRS: 46 QRSD: 96 T: 45 QT: 491 QTc: 461 Interpretive Statements Sinus rhythm Low voltage, precordial leads Electronically Signed On 01-04-2019 6:27:20 EDT by Delgado Topete
== END 2019-01-02 10:30 | disposition left against medical advice (07) ==
LOC: EMEROOARM 01:01 → 3ANU 01:01 → SUATTDRO 05:57 → 3ANU 06:19
PROVIDERS: ADMIT Internal Medicine; ATTEND Internal Medicine
PROC: ENDOEBX (2019-01-02 08:00)

== ENCOUNTER 2019-02-01 10:50 | Observation (INO) ==
[2019-02-01] MEDS ORDERED: 0.9 % Sodium Chloride 500 ML IVC ONE (11:40)
[2019-02-01] MEDS ORDERED: Folic Acid 1 MG TABLET PO STA (11:41)
[2019-02-01] MEDS ORDERED: Thiamine (B-1) 100 MG TABLET PO STA (11:41)
[2019-02-01] MEDS ORDERED: Multivit/Ca/Min/Fe/FA 1 TAB TABLET PO STA (11:41)
[2019-02-01] MEDS ORDERED: *HR* LORazepam 1 MG TABLET PO STA (12:14)
[2019-02-01 12:20] LABS: Basophils # 0.1 K/mcL (0.0-0.2); Basophils % 0.8 %; Eosinophils # 0.1 K/mcL (0.0-0.6); Eosinophils % 1.3 %; Hematocrit 42.3 % (37.5-50.1); Hemoglobin 14.8 g/dL (12.9-16.9); Immature Granulocytes % 0.7 % (0-4); Lymphocytes # 1.9 K/mcL (0.6-4.6); Lymphocytes % 25.6 %; Mean Corpuscular Hemoglobin 30.9 pg (28.0-33.3); Mean Corpuscular Volume 88.3 fL (83.0-100.0); Mean Platelet Volume 8.8 fL (9.4-12.4); Monocytes # 0.8 K/mcL (0.0-1.3); Monocytes % 10.3 %; Neutrophils # 4.6 K/mcL (1.6-8.9); Platelet Count 195 K/mcL (140-400); Red Blood Count 4.79 M/mcL (4.19-5.50); Red Cell Distribution Width 15.1 % (11.5-14.5); Segmented Neutrophils % 61.3 %; White Blood Count 7.5 K/mcL (4.3-11.1)
[2019-02-01 12:38] LABS: Prothrombin Time 11.3 Seconds (9.4-12.1)
[2019-02-01 12:40] LABS: Bilirubin,Urine Negative (Negative); Blood,Urine Negative (Negative); Clarity,Urine Clear (Clear); Color,Urine Yellow (Yellow); Glucose,Urine (UA) Normal (Normal); Ketones,Urine Negative (Negative); Leukocyte Esterase,Urine Negative (Negative); Nitrite,Urine Negative (Negative); PH,Urine 6.5 pH Units (5.0-8.0); Protein,Urine Negative (Neg-Trace); Specific Gravity,Urine 1.012 (1.010-1.025); Urobilinogen,Urine Normal (Normal)
[2019-02-01 13:01] LABS: Alanine Aminotransferase 32 Units/L (7-52); Albumin 4.5 g/dL (3.5-5.7); Albumin/Globulin Ratio 1.7 (1.1-2.2); Alkaline Phosphatase 59 Units/L (34-104); BUN/Creatinine Ratio 22 (6-26); Bilirubin,Total 0.4 mg/dL (0.3-1.0); Blood Urea Nitrogen 15 mg/dL (6-20); Calcium 8.7 mg/dL (8.6-10.3); Carbon Dioxide 22 mEq/L (23-29); Chloride 100 mEq/L (98-107); Ethanol 396 mg/dL (Less than 10); Globulin 2.7 g/dL (2.4-3.5); Glucose 94 mg/dL (70-105); Osmolality,Calculated 285 (280-300); Sodium 137 mEq/L (136-145); Total Protein 7.2 g/dL (6.4-8.9); eGFR For African Americans > 60 (> 60); eGFR For Non-African Americans > 60 (> 60)
[2019-02-01] MEDS ORDERED: Nicotine 21 MG PATCH.TD24 TD ONE (13:34)
[2019-02-01 15:42] LABS: Amphetamine Screen,Urine Negative ng/mL (Cutoff=1000); Barbiturate Screen,Urine Negative ng/mL (Cutoff=200); Benzodiazepines Screen,Urine Negative ng/mL (Cutoff=200); Cannabinoid Screen,Urine Negative ng/mL (Cutoff = 50); Cocaine Screen,Urine Negative ng/mL (Cutoff= 300); Opiate Screen,Urine Negative ng/mL (Cutoff=300); Phencyclidine Screen,Urine Negative ng/mL (Cutoff=25)
[2019-02-01] MEDS ORDERED: *HR* LORazepam 2 MG/ML VIAL IVP PRN (16:20)
[2019-02-01] MEDS ORDERED: *HR* Dextrose 50 % in Water (Syg) 50 ML SYRINGE IVP PRN (16:41)
[2019-02-01] MEDS ORDERED: Dextrose Gel 15 GM/37.5 ML TUBE PO PRN ×2 (16:41)
[2019-02-01] MEDS ORDERED: D5% in Water 1,000 ML IVC PRN (16:41)
[2019-02-01] MEDS: Insulin LISPRO 300 UNITS/3 ML VIAL SQ SCH ×2 (17:58→20:48)
[2019-02-01] MEDS: Thiamine (B-1) 100 MG, Folic Acid 1 MG, MVI, adult with vitamin K 10 ML in 0.9 % Sodi... IVPB SCH (18:07)
[2019-02-01] MEDS: *HR* LORazepam 2 MG/ML VIAL IVP PRN ×2 (19:32→23:19)
[2019-02-01] MEDS: Gabapentin 300 MG CAPSULE PO SCH (20:41)
[2019-02-02] MEDS ORDERED: Ondansetron 4 MG/2 ML VIAL IVP ONE (00:42)
[2019-02-02] MEDS: *HR* LORazepam 2 MG/ML VIAL IVP PRN ×6 (02:20→20:40)
[2019-02-02] MEDS ORDERED: Acetaminophen 325 MG TABLET PO ONE (03:57)
[2019-02-02] MEDS: Fluticasone Propionate Nasal 50 MCG/SPRAY BOTTLE NS PRN (06:01)
[2019-02-02 06:48] LABS: BUN/Creatinine Ratio 27 (6-26); Blood Urea Nitrogen 20 mg/dL (6-20); Calcium 8.8 mg/dL (8.6-10.3); Carbon Dioxide 24 mEq/L (23-29); Chloride 100 mEq/L (98-107); Glucose 155 mg/dL (70-105); Osmolality,Calculated 284 (280-300); Sodium 134 mEq/L (136-145); eGFR For African Americans > 60 (> 60); eGFR For Non-African Americans > 60 (> 60)
[2019-02-02] MEDS: Insulin LISPRO 300 UNITS/3 ML VIAL SQ SCH ×4 (07:27→19:58)
[2019-02-02] MEDS: Gabapentin 300 MG CAPSULE PO SCH ×2 (07:43→20:06)
[2019-02-02 07:56] LABS: Estimated Average Glucose 160 mg/dl
[2019-02-02] MEDS ORDERED: Folic Acid 1 MG TABLET PO SCH (09:00)
[2019-02-02] MEDS ORDERED: Aspirin Enteric Coated 81 MG Tablet PO SCH (09:00)
[2019-02-02] MEDS: Lisinopril 20 MG TABLET PO SCH (12:45)
[2019-02-02] MEDS: *HR* Heparin 5,000 UNIT/ML VIAL SQ SCH ×2 (12:45→20:49)
[2019-02-02] MEDS: amLODIPine 5 MG TABLET PO SCH (12:45)
[2019-02-02] MEDS: Nicotine 21 MG PATCH.TD24 TD SCH (13:53)
[2019-02-02] MEDS: Thiamine (B-1) 100 MG, Folic Acid 1 MG, MVI, adult with vitamin K 10 ML in 0.9 % Sodi... IVPB SCH (18:31)
[2019-02-02] MEDS ORDERED: traMADol 50 MG TABLET PO ONE (22:59)
[2019-02-03] MEDS ORDERED: *HR* LORazepam 2 MG/ML VIAL IVP ONE (00:45)
[2019-02-03] MEDS ORDERED: Acetaminophen 325 MG TABLET PO ONE (03:49)
[2019-02-03] MEDS: *HR* Heparin 5,000 UNIT/ML VIAL SQ SCH (03:55)
[2019-02-03] MEDS ORDERED: SODIUM CHLORIDE IR ONE (06:00)
[2019-02-03] MEDS ORDERED: TOBRAMYCIN IR ONE (06:00)
[2019-02-03] MEDS: Insulin LISPRO 300 UNITS/3 ML VIAL SQ SCH (07:58)
[2019-02-03] MEDS: Nicotine 21 MG PATCH.TD24 TD SCH (07:58)
[2019-02-03] MEDS: Gabapentin 300 MG CAPSULE PO SCH (07:59)
[2019-02-03] MEDS: Lisinopril 20 MG TABLET PO SCH (07:59)
[2019-02-03] MEDS: amLODIPine 5 MG TABLET PO SCH (07:59)
[2019-02-03] MEDS: Fluticasone Propionate Nasal 50 MCG/SPRAY BOTTLE NS PRN (07:59)
[2019-02-03 11:08] VITALS: BP 137/85
[2019-02-04] MEDS ORDERED: Folic Acid 1 MG TABLET PO SCH (09:00)
[2019-02-04] MEDS ORDERED: Thiamine (B-1) 100 MG TABLET PO SCH (09:00)
== END 2019-02-03 11:46 | disposition home or self-care (01) ==
LOC: 2ANU 10:50 → EMEROOARM 10:50 → SUATTDRO 15:40 → 2ANU 16:58
PROVIDERS: ADMIT Internal Medicine; ATTEND Pharmacist